=== PATIENT | female | born 1940 | race Caucasian/White ===

== ENCOUNTER → 2019-07-18 12:48 | Outpatient (CLI) | payer MEDICARE ==
[2015-06-21 06:17] VITALS: BMI 20.7
[~2019-07-18 12:48] MED LIST: ALEVE220 MG PO; CATAPRES0.3 MG PO; CELEBREX200 MG PO; HALCION0.25 MG PO; MEDROL DOSE PACK4 MG PO; NORVASC10 MG PO; PRAVACHOL80 MG PO; PREDNISONE10 MG PO; PRINIVIL20 MG PO; PROAIR HFA8.5 GM INH; SYMBICORT 16010.2 GM INH; ULTRACET TABLET1 TAB PO; ULTRAM50 MG PO; ZESTORETIC 20-1 EACH PO
== END | disposition home or self-care (01) ==
LOC: D.HCCECHO 12:48
PROVIDERS: ATTEND Internal Medicine Cardiovascular Disease
DX: I10 Essential (primary) hypertension (principal)

== ENCOUNTER → 2020-05-28 14:51 | Outpatient (CLI) | payer MEDICARE ==
[2020-01-16 12:48] VITALS: BMI 22.8
[~2020-05-28 14:51] MED LIST changes: +COZAAR50 MG PO; +LEXAPRO20 MG PO; +MOBIC7.5 MG PO
== END | disposition home or self-care (01) ==
LOC: D.OPS 13:00
PROVIDERS: ATTEND Family Medicine
DX: D64.9 Anemia, unspecified (principal)

== ENCOUNTER 2020-05-28 14:58 | Inpatient (IN) | payer MEDICARE ==
[~2020-05-28] VITALS: Ht 172.7 cm; Wt 59.1 kg
[2020-05-28] VITALS (8 sets, daily range): BP systolic 132–153; BP diastolic 59–76; Ht 172.7 cm; Wt 59.1 kg
[2020-05-28 15:22] LABS: BASOPHILS 0.4 % (0-2); EOSINOPHILS 0.5 % (0-7); IMMATURE GRANULOCYTES 0.6 % (0-5); LYMPHOCYTE ABS# 1.94 10x3/uL (1.18-3.74); LYMPHOCYTES 10.8 % (15-50); MCH 29.3 pg (26.0-34.0); MCHC 32.3 g/dL (31.0-37.0); MCV 90.5 fL (80.0-100.0); MEAN PLATELET VOLUME 9.4 fL (7.4-10.4); MONOCYTES 8.7 % (2-11); NEUTROPHIL ABS# 14.24 10x3/uL (1.56-6.13); RDW 15.3 % (11.5-14.5)
[2020-05-28 15:27] LABS: HEMATOCRIT 13.3 % (36.0-48.0); HEMOGLOBIN 4.3 g/dL (12-16); PLATELET COUNT 612 10x3/uL (130-400); RBC 1.47 10x6/uL (4.00-5.40)
[2020-05-28 15:32] LABS: CALC OSMOLALITY 261 mosm/kg (275-300); CALCIUM 9.5 mg/dL (8.5-10.1); CARBON DIOXIDE 23.1 mmol/L (21.0-32.0); CHLORIDE - SERUM 95 mmol/L (98-107); GLUCOSE 115 mg/dL (74-106); POTASSIUM - SERUM 3.9 mmol/L (3.5-5.1); SODIUM 128 mmol/L (136-145); UREA NITROGEN 25 mg/dL (7-18); eGFR NON AFRICAN AMERICAN 57 mL/min (90-120)
[2020-05-28 15:42] LABS: APTT 34.5 SECONDS (22.8-39.4); INR 1.97 (0.85-1.17); PROTIME 20.8 SECONDS (11.6-15.0)
[2020-05-28 15:53] LABS: ALBUMIN 2.5 g/dL (3.4-5.0); ALKALINE PHOSPHATASE 129 U/L (30-120); ALT (SGPT) 32 U/L (10-68); BILIRUBIN - TOTAL 0.41 mg/dL (0.2-1.3); CKMB 1.7 U/L (0.0-3.6); CREATINE KINASE 47 UL (21-215); MAGNESIUM - SERUM 1.6 mg/dL (1.8-2.4); PRO BNP 1420 pg/mL (0-450); PROTEIN - SERUM 5.8 g/dL (6.4-8.2)
[2020-05-28 16:03] LABS: TROPONIN-I 0.075 ng/mL (0.000-0.060)
[2020-05-28 17:10] LABS: % SATURATION 16 % (15-55); IRON 42 ug/dl (35-150); TOTAL IRON BIND CAPACITY 262 ug/dl (260-445); UNSAT IRON BIND CAPACITY 220 ug/dl (150-375)
--- NOTE | 2020-05-28 17:10 | NUR ---
PT'S IV PUMPING STATING CHECKING LINE. PTS IV CHECKED AND PTS IV PULLED ALMOST COMPLETELY OUT OF HER RAC. ATTEMPTED TO SAVE IV LINE AND WAS UNABLE TO KEEP THE LINE INTACT. IV REMOVED, CATHETER INTACT. BLEEDING STOPPED WITH AN OCCLUSIVE DRESSING. BLOOD TRANSFUSION MOVED THE THE PTS LAC 18G.
--- NOTE | 2020-05-28 17:30 | NUR ---
PT HAD A LEFT EJ 18G PLACED BY DR OLIVARES THAT THE PT PULLED OUT BY TOSSING AND TURNING. UNABLE TO REPLACED EJ AND UNABLE TO PLACE EJ ON THE PT'S RIGHT SIDE D/T THE PT HAVE A BANDAGE ON THE RIGHT SIDE OF HER NECK THAT LOOKS IF IT MIGHT HAVE BEEN A PREVIOUS IV ACCESS.
[2020-05-28 17:32] LABS: BILIRUBIN NEGATIVE (NEGATIVE); KETONE NEGATIVE (NEGATIVE); NITRITE NEGATIVE (NEGATIVE); UROBILINOGEN NORMAL mg/dL (< 2)
--- NOTE | 2020-05-28 17:35 | NUR ---
CONSULT PUT IN TO DR MAXWELL FOR A CENTRAL LINE THE PT HAS REMOVED TO LINES, AND THE PT IS REQUIRING FURTHER IV ACCESS THAT CANNOT BE OBTAINED AT THIS TIME. PROTONIX DRIP, ROCEPHIN AND NS BOLUS STOPPED D/T NOT HAVING A SECOND IV LINE AT THIS TIME.
--- NOTE | 2020-05-28 20:15 | NUR ---
CONTACTED DR RIVERA AND HE HAS ACCEPTED THE PATIENT AT [facility], [place].
--- NOTE | 2020-05-28 20:30 | NUR ---
[facility] CONTACTED FOR ADMISSION TALKED TO [facility].
--- NOTE | 2020-05-28 20:48 | NUR ---
DR FAIRBANKS GAVE A DOCTOR TO DOCTOR WITH DR. MALDONADO AT [facility].
--- NOTE | 2020-05-28 21:59 | NUR ---
REPORT CALLED TO FLAVIO AGUILAR AT [facility]
--- NOTE | 2020-05-28 22:13 | NUR ---
[facility] CALLED FOR TRANSFER
--- NOTE | 2020-05-28 23:39 | NUR ---
[facility] HERE TO TRANSPORT PT TO [facility]
[2020-05-29 01:59] LABS: SARS-CoV-2 ANTIGEN NEGATIVE- SARS-COV-2 (NEGATIVE)
== END 2020-05-28 23:49 | disposition short-term general hospital (02) | DRG 811 ==
LOC: D.ER 14:58 → D.ICU 17:33 → D.EDHOLD 22:25
PROVIDERS: Family Medicine; ADMIT Family Medicine; ATTEND Family Medicine
PROC: 05HM33Z Insertion of Infusion Device into Right Internal Jugular Vein, Percutaneous Approach (ICD-10-PCS; principal; 2020-05-28)
DX: D62 Acute posthemorrhagic anemia (principal); K75.0 Abscess of liver; K92.2 Gastrointestinal hemorrhage, unspecified; E87.1 Hypo-osmolality and hyponatremia; D68.59 Other primary thrombophilia; R55 Syncope and collapse; I25.10 Atherosclerotic heart disease of native coronary artery without angina pectoris; I10 Essential (primary) hypertension; F32.9 Major depressive disorder, single episode, unspecified; I95.9 Hypotension, unspecified; G89.29 Other chronic pain